=== PATIENT | female | born 1970 | race Caucasian/White ===

== ENCOUNTER 2018-09-21 21:32 | Emergency (ER) | payer MEDICAID ==
[~2018-09-21] VITALS: Ht 162.6 cm; Wt 112.5 kg
[~2018-09-21 21:32] MED LIST: ALBU18HF2 INH; FERR325T28 PO; HALO5TAB PO; LEVO100T9
[2018-09-21] MEDS ORDERED: LORazepam 1 MG tablet PO ONE (22:40)
[2018-09-21] MEDS ORDERED: cephalexin 250mg capsule PO ONE (22:40)
[2018-09-21] MEDS ORDERED: CEPH250T PO (22:42)
[2018-09-21 23:15] VITALS: BP 132/78
== END 2018-09-21 23:16 | disposition home or self-care (01) ==
LOC: ER 21:32
DX: F41.9 Anxiety disorder, unspecified (principal); L03.116 Cellulitis of left lower limb; F31.9 Bipolar disorder, unspecified; F20.9 Schizophrenia, unspecified; E03.9 Hypothyroidism, unspecified; J45.909 Unspecified asthma, uncomplicated; F12.90 Cannabis use, unspecified, uncomplicated; Z98.51 Tubal ligation status; Z88.0 Allergy status to penicillin; Z88.6 Allergy status to analgesic agent; Z88.8 Allergy status to other drugs, medicaments and biological substances; Z79.899 Other long term (current) drug therapy
CPT/HCPCS: 99284

== ENCOUNTER 2019-01-14 17:55 | Emergency (ER) | payer MEDICAID ==
[~2019-01-14] VITALS: Ht 162.6 cm; Wt 90.0 kg
[2019-01-14] MEDS ORDERED: ipratropium/albuterol 3ml nebule NEB ONE (18:25)
[2019-01-14] MEDS ORDERED: ALBU8HFA PO (18:45)
[2019-01-14 18:56] VITALS: BP 143/84
== END 2019-01-14 19:02 | disposition home or self-care (01) ==
LOC: ER 17:56
DX: J45.909 Unspecified asthma, uncomplicated (principal); E03.9 Hypothyroidism, unspecified; F31.9 Bipolar disorder, unspecified; F20.9 Schizophrenia, unspecified; F15.90 Other stimulant use, unspecified, uncomplicated; Z88.0 Allergy status to penicillin; Z88.6 Allergy status to analgesic agent; Z79.899 Other long term (current) drug therapy; Z98.51 Tubal ligation status
CPT/HCPCS: 71045; 94640; 94760; 99283